=== PATIENT | male | born 1975 | race Caucasian/White ===

== ENCOUNTER 2024-01-13 14:08 | Outpatient (CLI) | payer BC | END 2024-01-13 14:09 | disposition home or self-care (01) | LOC: SCSRAD 14:08 | PROVIDERS: ATTEND Family Medicine | DX: S39.92XA Unspecified injury of lower back, initial encounter (principal); M47.816 Spondylosis without myelopathy or radiculopathy, lumbar region; M47.817 Spondylosis without myelopathy or radiculopathy, lumbosacral region; M51.36 Other intervertebral disc degeneration, lumbar region; M51.37 Other intervertebral disc degeneration, lumbosacral region | CPT/HCPCS: 72100 ==